=== PATIENT | male | born 1955 | race Caucasian/White ===

== ENCOUNTER 2016-11-28 15:07 | Emergency (ER) | payer MEDICAID ==
[~2016-11-28] VITALS: Ht 172.7 cm; Wt 69.0 kg
[~2016-11-28 15:07] MED LIST: AMIT25TA PO; AMLO5TAB4 PO; ASPI-621 PO; ASPI325T4 PO; ATOR40TA78 PO; AZIT500T4 PO; BISA10SU2 PR; CARV12.543 PO; CEFD300C2 PO; CLOP75TA PO; DOCU-30 PO; DULO30CA2 PO; ENAL1.2513 IVF; HEPA50004 SQ; HYDR-3341 PO; LABE5VIA13 IVF; LACT10SO28 PO; LEVO100T PO; LEVO100T5 PO; LISI-167 PO; LISI-170 PO; ONDA4VIA4 IVF; OXYC5CAP4 PO; [UNRECOGNIZED DRUG - CODE] PO
[2016-11-28] MEDS ORDERED: ASPIRIN 81 MG TABLET CHEW PO ONE (15:30)
[2016-11-28] MEDS ORDERED: SODIUM CHLORIDE FLUSH 10ML SYR IVF ONE (15:30)
[2016-11-28] MEDS ORDERED: ASPIRIN 81 MG TABLET CHEW ONE (15:34)
[2016-11-28] MEDS ORDERED: MORPHINE SULFATE 4 MG/ML, 1ML IVPush PRN (16:00)
[2016-11-28] MEDS ORDERED: ONDANSETRON 2MG/ML, 2ML IVPush ONE (16:00)
[2016-11-28 16:34] VITALS: BP 159/75
[2016-11-28 17:09] LABS: HEMOGLOBIN 13.2 g/dL (13.7-18.0)
[2016-11-28 17:16] LABS: BLOOD UREA NITROGEN 24 mg/dL (7-18)
[2016-11-28 17:22] LABS: IS PT STATUS REG ER OR PRE ER? YES
== END 2016-11-28 17:37 | disposition home or self-care (01) ==
LOC: ED 17:31
DX: R07.2 Precordial pain (principal); E03.9 Hypothyroidism, unspecified; I12.9 Hypertensive chronic kidney disease with stage 1 through stage 4 chronic kidney disease, or unspecified chronic kidney disease; I25.10 Atherosclerotic heart disease of native coronary artery without angina pectoris; I25.2 Old myocardial infarction; N18.3 Chronic kidney disease, stage 3 (moderate)
CPT/HCPCS: 36415; 71010; 80048; 82040; 83880; 84484; 85025; 93005

== ENCOUNTER 2017-02-03 05:30 | Emergency (ER) | payer MEDICAID ==
[~2017-02-03] VITALS: Ht 172.7 cm; Wt 66.9 kg
[~2017-02-03 05:30] MED LIST changes: -AZIT500T4 PO; +AZIT500T77 PO; -CEFD300C2 PO; +CEFD300C37 PO
[2017-02-03 05:31] VITALS: BP 131/80
== END 2017-02-03 07:15 | disposition home or self-care (01) ==
LOC: ED 07:11
DX: J02.9 Acute pharyngitis, unspecified (principal); J20.9 Acute bronchitis, unspecified; B96.89 Other specified bacterial agents as the cause of diseases classified elsewhere; N18.3 Chronic kidney disease, stage 3 (moderate); I12.9 Hypertensive chronic kidney disease with stage 1 through stage 4 chronic kidney disease, or unspecified chronic kidney disease; I25.10 Atherosclerotic heart disease of native coronary artery without angina pectoris; F17.210 Nicotine dependence, cigarettes, uncomplicated; Z79.82 Long term (current) use of aspirin; Z86.73 Personal history of transient ischemic attack (TIA), and cerebral infarction without residual deficits; Z88.0 Allergy status to penicillin
CPT/HCPCS: 71020; 87081; 87880; 99285

== ENCOUNTER 2017-02-06 19:55 | Emergency (ER) | payer MEDICAID ==
[~2017-02-06] VITALS: Ht 172.7 cm; Wt 65.0 kg
[2017-02-06] MEDS ORDERED: ASPIRIN 81 MG TABLET CHEW ONE (20:19)
[2017-02-06] MEDS ORDERED: SODIUM CHLORIDE 0.9% 1,000ML IVBOLUS ONE (20:30)
[2017-02-06] MEDS ORDERED: SODIUM CHLORIDE FLUSH 10ML SYR IVF ONE (20:30)
[2017-02-06] MEDS ORDERED: ASPIRIN 81 MG TABLET CHEW PO ONE (20:30)
[2017-02-06 20:43] LABS: BLOOD UREA NITROGEN 16 mg/dL (7-18)
[2017-02-06 20:48] LABS: IS PT STATUS REG ER OR PRE ER? YES
[2017-02-06 21:17] VITALS: BP 142/70
== END 2017-02-07 00:19 | disposition home or self-care (01) ==
LOC: ED 23:13
DX: R07.89 Other chest pain (principal); D64.9 Anemia, unspecified; I25.2 Old myocardial infarction; I12.9 Hypertensive chronic kidney disease with stage 1 through stage 4 chronic kidney disease, or unspecified chronic kidney disease; N18.3 Chronic kidney disease, stage 3 (moderate); I25.10 Atherosclerotic heart disease of native coronary artery without angina pectoris; E03.9 Hypothyroidism, unspecified
CPT/HCPCS: 36415; 71010; 80048; 80307; 82040; 84484; 85025; 93005; 96360; 99285; J7030

== ENCOUNTER 2017-02-26 08:03 | Emergency (ER) | payer MEDICAID ==
[~2017-02-26] VITALS: Ht 172.7 cm; Wt 64.0 kg
[2017-02-26] MEDS ORDERED: SODIUM CHLORIDE 0.9% 1,000 ML IV ONE (08:34)
[2017-02-26] MEDS ORDERED: SODIUM CHLORIDE 0.9% 1,000ML IVBOLUS ONE (09:00)
[2017-02-26 09:08] LABS: ASPARTATE AMINO TRANSFERASE 27 U/L (15-37); BLOOD UREA NITROGEN 15 mg/dL (7-18)
[2017-02-26 09:12] LABS: IS PT STATUS REG ER OR PRE ER? YES
[2017-02-26 10:54] LABS: PATH.CAST-FLAG NOT PRESENT; SPERM-FLAG NOT PRESENT; SRC-FLAG NOT PRESENT; XTAL-FLAG NOT PRESENT; YLC-FLAG NOT PRESENT
[2017-02-26 11:59] VITALS: BP 138/86
== END 2017-02-26 12:00 | disposition home or self-care (01) ==
LOC: ED 08:59
DX: E03.9 Hypothyroidism, unspecified (principal); R53.1 Weakness; I12.9 Hypertensive chronic kidney disease with stage 1 through stage 4 chronic kidney disease, or unspecified chronic kidney disease; I25.10 Atherosclerotic heart disease of native coronary artery without angina pectoris; N18.3 Chronic kidney disease, stage 3 (moderate); Z86.73 Personal history of transient ischemic attack (TIA), and cerebral infarction without residual deficits; Z88.0 Allergy status to penicillin
CPT/HCPCS: 36415; 70450; 71010; 80053; 81001; 83605; 84436; 84443; 84484; 85025; 85610; 87086; 93005; 96360; 96361; 99285; J7030